=== PATIENT | female | born 1985 | race Caucasian/White ===

== ENCOUNTER → 2021-09-19 | Outpatient (CLI) | payer BC ==
--- NOTE | 2021-09-19 20:45 | CT ---
EXAMINATION TYPE: CT abdomen pelvis wo con DATE OF EXAM: 09/19/2021 HISTORY: Hematuria, bilateral flank pain CT DLP: 2926.30 mGycm. Automated Exposure Control for Dose Reduction was Utilized. TECHNIQUE: CT scan of the abdomen and pelvis is performed without oral or IV contrast. COMPARISON: NONE FINDINGS: Within the limitations of a non-contrast study, the following observations are made. LUNG BASES: No significant abnormality is appreciated. LIVER/GB: The liver is heterogeneously hypodense consistent with diffuse fatty infiltration. Cholecys tectomy clips are seen. No biliary dilatation. PANCREAS: No significant abnormality is seen. SPLEEN: No significant abnormality is seen. ADRENALS: No significant abnormality is seen. KIDNEYS: No renal stones or hydronephrosis is present bilaterally. No intraluminal calculus in the bl adder. BOWEL: Normal-appearing appendix from the cecum. No suspicious small or large bowel dilatation. GENITAL ORGANS: Anteverted uterus. No adnexal masses. A few scattered tiny pelvic phleboliths. LYMPH NODES: No greater than 1cm abdominal or pelvic lymph nodes are appreciated. OSSEOUS STRUCTURES: No significant abnormality is seen. OTHER: No significant additional abnormality is seen. IMPRESSION: No renal stones or hydronephrosis is seen bilaterally. Source of hematuria and bilateral flank pain not identified.
== END | disposition home or self-care (01) ==
LOC: RADCTMAIN 17:59
PROVIDERS: ATTEND Family Medicine
DX: R31.9 Hematuria, unspecified (principal); R10.9 Unspecified abdominal pain
CPT/HCPCS: 74176

== ENCOUNTER → 2024-09-30 | Outpatient (CLI) | payer OTHER ==
[2024-09-30 15:03] VITALS: BP 135/78; PULSE 104; TEMP 97.8; BMI 50.3
--- NOTE | 2024-09-30 15:50 | P.HPBAR ---
Bariatric H&P - History & Physicial H&P Date: 09/30/24 History & Physicial: Visit/CC: initial clinic visit Patient initial contact: Initial weight: Initial weight in pounds: Height: 5 ft 7 in Initial BMI: Last weight: Current weight: 145.603 kg Current weight in pounds: 321.00 Current BMI: 50.3 [place] body weight (based on NIH guidelines): 61.36 kg Excess body weight loss: The patient is a 38 year-old F who presents for Bariatric Assessment. 38-year-old female here for weight loss assessment. Patient with current BMI 50.3. Has suffered with her weight for many years. Previously was looking into weight loss surgery at [facility]. That was before [facility]. Patient suffers from asthma, and chronic reflux. Patient says her heartburn is well-controlled with omeprazole 40 mg once daily. No tobacco use. No DVT history. Denies dysphagia. Surgical history includes laparoscopic cholecystectomy and tonsils. Review of Systems The patient denies any acute changes in vision or hearing, no dysphagia or odynophagia, no chest pain or shortness of breath, no dysuria or hematuria, no headache, no runny nose, no rectal bleeding or melena, no unexplained weight loss Past Medical History Past Medical History: Sleep Apnea/CPAP/BIPAP History of Any Multi-Drug Resistant Organisms: None Reported Past Surgical History: Cholecystectomy, Tonsillectomy Additional Past Surgical History / Comment(s): C section x 3 Past Anesthesia/Blood Transfusion Reactions: No Reported Reaction Past Psychological History: No Psychological Hx Reported Smoking Status: Never smoker Past Alcohol Use History: None Reported Past Drug Use History: None Reported Surgical - Exam Vital Signs Temp Pulse BP 97.8 F 104 H 135/78 09/30/24 15:01 09/30/24 15:01 09/30/24 15:01 Physical exam: General: Well-developed, well-nourished HEENT: Normocephalic, sclerae nonicteric Abdomen: Nontender, nondistended Extremities: No edema Neuro: Alert and oriented Bariatric Assessment & Plan (1) Morbid obesity with BMI of 50.0-59.9, adult Narrative/Plan: 38-year-old female with morbid obesity and associated comorbidities. After discussing surgical options with patient she states she is interested in gastric bypass and not sleeve gastrectomy. She says that this decision is based on some of the people she has met that have had the surgeries previously. Discussed with the patient that given her current BMI and chronic reflux symptoms that may be a good option for her. Arrangements are being made for the patient to be seen next week by Dr. Alexander to discuss further since I do not perform that surgery. Status: Acute Bariatric Checklist Checklist: Plan: Checklist: EGD: 1. Hiatal hernia: 2. H. Pylori: HgbA1c: Vitamin D: Smoking: Primary care physician referral: Psychiatry clearance: Cardiology clearance: Sleep study: Diet journal: VTE risk score: VTE risk level: Rehab needs at discharge:
== END ==
LOC: BARWHC3 14:31
PROVIDERS: ATTEND Surgery
DX: E66.01 Morbid (severe) obesity due to excess calories (principal); Z68.43 Body mass index [BMI] 50.0-59.9, adult
CPT/HCPCS: 99211

== ENCOUNTER 2024-12-22 12:33 | Observation (INO) | payer OTHER ==
--- NOTE | 2024-12-22 14:20 | ED ---
General Adult HPI - General Chief complaint: Dizziness Stated complaint: Dizziness Time Seen by Provider: 12/22/24 14:01 Source: patient, EMS Mode of arrival: EMS Limitations: no limitations - History of Present Illness Initial comments: Dictation was produced using VSporto dictation software. please excuse any grammatical, word or spelling errors. Chief Complaint: 39-year-old female presents to the emergency department with dizziness and brain fog History of Present Illness: Patient 39-year-old female she suffers from a history of migraines. Patient states this morning she woke up feeling fine when around 9 she started to feel little dizzy. States that the night before she had a headache that was improved after taking [id number] headache medications. States that the dizziness did not really get better so she decided to come to the ER. No nausea vomiting. No abdominal pain. No shortness of breath. Denies sensation of the room spinning. Patient [place] any comorbidities. Denies . The ROS documented in this emergency department record has been reviewed and confirmed by me. Those systems with pertinent positive or negative responses have been documented in the HPI. All other systems are other negative and/or noncontributory. - Related Data Home Medications Medication Instructions Recorded Confirmed Venlafaxine HCl [Effexor XR] 150 mg PO DAILY 09/30/24 09/30/24 Allergies Allergy/AdvReac Type Severity Reaction Status Date / Time No Known Allergies Allergy Verified 12/22/24 13:06 Review of Systems ROS Statement: Those systems with pertinent positive or pertinent negative responses have been documented in the HPI. ROS Other: All systems not noted in ROS Statement are negative. Past Medical History Past Medical History: Sleep Apnea/CPAP/BIPAP History of Any Multi-Drug Resistant Organisms: None Reported Past Surgical History: Cholecystectomy, Tonsillectomy Additional Past Surgical History / Comment(s): C section x 3 Past Anesthesia/Blood Transfusion Reactions: No Reported Reaction Past Psychological History: No Psychological Hx Reported Smoking Status: Never smoker Past Alcohol Use History: None Reported Past Drug Use History: None Reported General Exam - General Exam Comments Initial Comments: PHYSICAL EXAM: General Impression: Alert and oriented x3, not in acute distress HEENT: Normocephalic atraumatic, extra-ocular movements intact, pupils equal and reactive to light bilaterally, mucous membranes moist. Cardiovascular: Heart regular rate and rhythm Chest: Able to complete full sentences, no retractions, no tachypnea Abdomen: abdomen soft, non-tender, non-distended, no organomegaly Musculoskeletal: Pulses present and equal in all extremities, no peripheral edema Motor: no focal deficits noted Neurological: CN II-XII grossly intact, no focal motor or sensory deficits noted Skin: Intact with no visualized rashes Psych: Normal affect and mood Limitations: no limitations Course Vital Signs 12/22/24 12/22/24 13:03 14:12 Temperature 97.7 F Pulse Rate 74 73 Respiratory 18 16 Rate Blood Pressure 125/83 119/79 O2 Sat by Pulse 97 98 Oximetry Medical Decision Making - Medical Decision Making Was pt. sent in by a medical professional or institution (, PA, SCAFFOLDING HELPER, urgent ca re, hospital, or long term...) When possible be specific @ -No Did you speak to anyone other than the patient for history (EMS, parent, family, police, friend...)? What history was obtained from this source @ -No Did you review nursing and triage notes (agree or disagree)? Why? @ -I reviewed and agree with nursing and triage notes Were old charts reviewed (outside hosp., previous admission, EMS record, old EKG, old radiological studies, urgent care reports/EKG's, long term records)? Report findings @ -No old charts were reviewed Differential Diagnosis (chest pain, altered mental status, abdominal pain women, abdominal pain men, vaginal bleeding, musculoskeletal, weakness, fever, dyspnea, syncope, headache, dizziness, GI bleed, back pain, seizure, CVA, palpatations, mental health)? @ -Differential Dizziness: Benign paroxysmal positional Vertigo, Meniere's disease, otitis media, acoustic neuroma, vertebrobasilar insufficiency, cerebellar stroke, encephalitis, hypovolemic, arrhythmia, coronary artery syndrome, anemia, this is not meant to be an all-inclusive list EKG interpreted by me (3pts min.). @ -None done X-rays interpreted by me (1pt min.). @ -None done CT interpreted by me (1pt min.). @ -None done U/S interpreted by me (1pt. min.). @ -None done What testing was considered but not performed or refused? (CT, X-rays, U/S, labs)? Why? @ -None What meds were considered but not given or refused? Why? @ -None Was smoking cessation discussed for >3mins.? @ -No Were there social determinants of health that impacted care today? How? (Homelessness, low income, unemployed, alcoholism, drug addiction, transportation, low edu. Level, literacy, decrease access to med. care, custodial, rehab)? @ -No Was there de-escalation of care discussed even if they declined (Discuss DNR or withdrawal of care, Hospice)? DNR status @ -No What co-morbidities impacted this encounter? (DM, HTN, Smoking, COPD, CAD, Cancer, CVA, ARF, Chemo, Hep., AIDS, mental health diagnosis, sleep apnea, morbid obesity)? @ -None Was patient admitted / discharged? Hospital course, mention meds given and route, prescriptions, significant lab abnormalities, going to OR and other pertinent info. @ -39-year-old female presents emergency department dizziness. Denies any black or bloody stools. Vital signs are stable. Patient complains of dizziness lightheadedness. She states she does have some heavy menstrual bleeding. 6.5. Metabolic panel within acceptable limits. Urinalysis negative. Patient clinical presentation consistent with symptomatic anemia. Order for blood transfusion. Patient will be admitted observation overnight. Case discussed with hospitalist with TECHNICAL SERVICES REPRESENTATIVE on consult for vaginal bleeding. Did you discuss the management of the patient with other professionals (professionals i.e. , PA, SCAFFOLDING HELPER, lab, RT, psych nurse, delinquency prevention social worker, electric razor mechanic, teacher, chief administrative officer, caseworker)? Give summary @ -See above Was critical care preformed (if so, how long)? @ -No Undiagnosed new problem with uncertain prognosis? @ -No Drug Therapy requiring intensive monitoring for toxicity (Heparin, Nitro, Insulin, Cardizem)? @ -No Were any procedures done? @ -No Diagnosis/symptom? Acute, or Chronic, or Acute on Chronic? Uncomplicated (without systemic symptoms) or Complicated (systemic symptoms)? @ -Symptomatic anemia Side effects of treatment? @ -No Exacerbation, Progression, or Severe Exacerbation? @ -No Poses a threat to life or bodily function? How? (Chest pain, [place], [place], pneumonia, PE, COPD, DKA, ARF, appy, cholecystitis, CVA, Diverticulitis, Homicidal, Suicidal, threat to staff... and all critical care pts) @ -yes - Lab Data Result diagrams: 12/22/24 14:29 12/22/24 14:29 Lab Results 12/22/24 12/22/24 12/22/24 Range/Units 14:29 14:29 14:29 WBC 4.86 (4.50-10.00) 10*3/uL RBC 2.15 L (4.10-5.20) 10*6/uL Hgb 6.5 L* (12.0-15.0) g/dL Hct 20.4 L (37.2-46.3) % MCV 94.9 (80.0-97.0) fL MCH 30.2 (27.0-32.0) pg MCHC 31.9 L (32.0-37.0) g/dL Plt Count 181 (140-440) 10*3/uL MPV 9.8 (9.5-12.2) fL Immature Gran % (Auto) 0.4 % Neutrophils % 66.1 % Lymphocytes % 24.7 % Monocytes % 4.3 % Eosinophils % 3.9 % Basophils % 0.6 % Immature Gran # 0.02 (0.00-0.04) 10*3/uL Neutrophils # 3.21 (1.80-7.70) 10*3/uL Lymphocytes # 1.20 (0.90-5.00) 10*3/uL Monocytes # 0.21 (0.20-1.00) 10*3/uL Eosinophils # 0.19 (0.04-0.35) 10*3/uL Basophils # 0.03 (0.00-0.10) 10*3/uL Sodium (137-145) mmol/L Potassium (3.5-5.1) mmol/L Chloride (98-107) mmol/L Carbon Dioxide (22-30) mmol/L Anion Gap mmol/L BUN (7-17) mg/dL Creatinine (0.52-1.04) mg/dL Est GFR (CKD-EPI)AfAm (>60 ml/min/1.73 sqM) Est GFR (CKD-EPI)NonAf (>60 ml/min/1.73 sqM) Glucose (74-99) mg/dL Calcium (8.4-10.2) mg/dL Urine Color Yellow Urine Appearance Cloudy H (Clear) Urine pH 5.5 (5.0-8.0) Ur Specific [place] 1.036 H (1.001-1.035) Urine Protein Negative (Negative) Urine Glucose (UA) Negative (Negative) Urine Ketones Negative (Negative) Urine Blood Trace H (Negative) Urine Nitrite Negative (Negative) Urine Bilirubin Negative (Negative) Urine Urobilinogen <2.0 (<2.0) mg/dL Ur Leukocyte Esterase Negative (Negative) Urine RBC 3 (0-5) /hpf Urine WBC 1 (0-5) /hpf Ur Squamous Epith Cells 3 (0-4) /hpf Urine Bacteria Few H (None) /hpf Urine Mucus Many H (None) /hpf Urine HCG, Qual Not Detected (Not Detectd) 12/22/24 Range/Units 14:29 WBC (4.50-10.00) 10*3/uL RBC (4.10-5.20) 10*6/uL Hgb (12.0-15.0) g/dL Hct (37.2-46.3) % MCV (80.0-97.0) fL MCH (27.0-32.0) pg MCHC (32.0-37.0) g/dL Plt Count (140-440) 10*3/uL MPV (9.5-12.2) fL Immature Gran % (Auto) % Neutrophils % % Lymphocytes % % Monocytes % % Eosinophils % % Basophils % % Immature Gran # (0.00-0.04) 10*3/uL Neutrophils # (1.80-7.70) 10*3/uL Lymphocytes # (0.90-5.00) 10*3/uL Monocytes # (0.20-1.00) 10*3/uL Eosinophils # (0.04-0.35) 10*3/uL Basophils # (0.00-0.10) 10*3/uL Sodium 140 (137-145) mmol/L Potassium 3.3 L (3.5-5.1) mmol/L Chloride 113 H (98-107) mmol/L Carbon Dioxide 19 L (22-30) mmol/L Anion Gap 8 mmol/L BUN 8 (7-17) mg/dL Creatinine 0.48 L (0.52-1.04) mg/dL Est GFR (CKD-EPI)AfAm >90 (>60 ml/min/1.73 sqM) Est GFR (CKD-EPI)NonAf >90 (>60 ml/min/1.73 sqM) Glucose 68 L (74-99) mg/dL Calcium 7.0 L (8.4-10.2) mg/dL Urine Color Urine Appearance (Clear) Urine pH (5.0-8.0) Ur Specific [place] (1.001-1.035) Urine Protein (Negative) Urine Glucose (UA) (Negative) Urine Ketones (Negative) Urine Blood (Negative) Urine Nitrite (Negative) Urine Bilirubin (Negative) Urine Urobilinogen (<2.0) mg/dL Ur Leukocyte Esterase (Negative) Urine RBC (0-5) /hpf Urine WBC (0-5) /hpf Ur Squamous Epith Cells (0-4) /hpf Urine Bacteria (None) /hpf Urine Mucus (None) /hpf Urine HCG, Qual (Not Detectd) Disposition Clinical Impression: Symptomatic anemia Disposition: ADMITTED IP TO THIS [facility] Condition: Fair Referrals: None,Stated [REFERRING] - 1-2 days Decision Time: 15:06
[2024-12-22] MEDS: diphenhydrAMINE 50 MG/ML 1 ML VIAL IVP STA (14:41)
[2024-12-22] MEDS: ONDANSETRON 4 MG/2 ML VIAL IVP STA (14:41)
[2024-12-22] MEDS: SODIUM CHLORIDE 0.9% 1,000 ML IV STA (14:41)
[2024-12-22] MEDS: KETOROLAC 15 MG/ML 1 ML VIAL IVP STA (14:41)
[2024-12-22 14:48] LABS: Basophils # (A) 0.03 10*3/uL (0.00-0.10); Basophils % (A) 0.6 %; Eosinophils # (A) 0.19 10*3/uL (0.04-0.35); Eosinophils % (A) 3.9 %; HCT 20.4 % (37.2-46.3); Lymphocytes % (A) 24.7 %; MCH 30.2 pg (27.0-32.0); MCHC 31.9 g/dL (32.0-37.0); MCV 94.9 fL (80.0-97.0); Mean Platelet Volume 9.8 fL (9.5-12.2); Monocytes # (A) 0.21 10*3/uL (0.20-1.00); Monocytes % (A) 4.3 %; Neutrophils # (A) 3.21 10*3/uL (1.80-7.70); Neutrophils % (A) 66.1 %; Platelet Count 181 10*3/uL (140-440); RBC 2.15 10*6/uL (4.10-5.20); RDW 12.9 % (11.5-14.5); WBC 4.86 10*3/uL (4.50-10.00)
[2024-12-22 14:51] LABS: HGB 6.5 g/dL (12.0-15.0)
[2024-12-22 14:53] LABS: African American GFR (CKD) >90 (>60 ml/min/1.73 sqM); Anion Gap 8 mmol/L; Blood Urea Nitrogen 8 mg/dL (7-17); Carbon Dioxide 19 mmol/L (22-30); Chloride 113 mmol/L (98-107); Glucose 68 mg/dL (74-99); Non-African American GFR(CKD) >90 (>60 ml/min/1.73 sqM); Sodium 140 mmol/L (137-145)
[2024-12-22 14:56] LABS: Appearance,Urine Cloudy (Clear); Bacteria,Urine Few /hpf; Bilirubin,Urine Negative (Negative); Blood,Urine Trace (Negative); Color,Urine Yellow; Glucose,Urine (UA) Negative (Negative); Ketones,Urine Negative (Negative); Leukocyte Esterase,Urine Negative (Negative); Mucus,Urine Many /hpf; Nitrite,Urine Negative (Negative); PH, Urine 5.5 (5.0-8.0); Protein,Urine Negative (Negative); RBC,Urine 3 /hpf (0-5); Specific Gravity,Urine 1.036 (1.001-1.035); Squamous Epithelial Cell,Urine 3 /hpf (0-4); Urobilinogen,Urine <2.0 mg/dL (<2.0); WBC,Urine 1 /hpf (0-5)
[2024-12-22 15:00] LABS: Potassium 3.3 mmol/L (3.5-5.1)
[2024-12-22] MEDS ORDERED: NALOXONE 0.4 MG/ML 1 ML VIAL IV PRN (15:04)
[2024-12-22] MEDS: SODIUM CHLORIDE 0.9% 1,000 ML IV SCH (16:16)
[2024-12-22] MEDS ORDERED: ALBUTEROL NEBULIZED 2.5 MG/3 ML INHALATION PRN (17:28)
[2024-12-22] MEDS: SYMBICORT 160-4.5 MCG INHALER INHALATION SCH (19:50)
[2024-12-22] MEDS: VENLAFAXINE HCL ER 150 MG CAP PO SCH (20:26)
[2024-12-22] MEDS: oxyBUTYnin chloride 5 MG TAB PO SCH (20:26)
[2024-12-22 21:53] LABS: HCT 40.7 % (37.2-46.3); MCH 29.6 pg (27.0-32.0); MCHC 32.4 g/dL (32.0-37.0); MCV 91.3 fL (80.0-97.0); Mean Platelet Volume 9.1 fL (9.5-12.2); Platelet Count 313 10*3/uL (140-440); RBC 4.46 10*6/uL (4.10-5.20); WBC 7.16 10*3/uL (4.50-10.00)
[2024-12-22 22:01] LABS: HGB 13.2 g/dL (12.0-15.0)
--- NOTE | 2024-12-23 04:33 | HP ---
HISTORY AND PHYSICAL CHIEF COMPLAINT: Dizziness and anemia. HISTORY OF PRESENT ILLNESS: This is a 39-year-old woman with past medical history of sleep apnea, history of cholecystectomy, admitted with dizziness. The patient works as a house cleaning. The patient felt significant dizziness as well as headache and the patient came to [facility]. Hemoglobin was found to be 6.5. The patient is being transfused. There is no history of fever, rigors, chills. No history of bleeding or at this time. PAST MEDICAL HISTORY: Sleep apnea, history of cholecystectomy, also reviewed. MEDICATIONS: Effexor XR. Rest of medications noted. ALLERGIES: None. FAMILY HISTORY: No history of heart disease or stroke in the family. SOCIAL HISTORY: No history of smoking or alcohol intake. REVIEW OF SYSTEMS: Fourteen-point review of systems is negative except as mentioned above. PHYSICAL EXAMINATION: VITAL SIGNS: Pulse is 70, blood pressure 134/70, respirations 16. HEENT: Conjunctivae pale. CARDIOVASCULAR: n. ABDOMEN: Soft, nontender. LEGS: n NERVOUS SYSTEM: No focal deficit. SKIN: No rashes. LABORATORY DATA: Hemoglobin 6.5, MCV 94.9, potassium 3.3, CO2 is 19, glucose is 68, calcium is 7. ASSESSMENT: 1. Syncope , possible anemia. 2. Hypokalemia. 3. Sleep apnea. 4. Cholecystectomy. RECOMMENDATION: This 39-year-old woman presented with multiple complex medical issues. We will monitor the patient closely. Continue with the current medications, symptomatic treatment at this time. Transfusion. I would also recommend repeat hemoglobin. If hemoglobin is persistently low, I would also recommend stool OB and workup for the blood loss also. Prognosis extremely guarded because of multiple complex medical issues. Further recommendations to follow. See orders for details. MMODL / IJN: [id number] / MTDD
[2024-12-23 05:59] LABS: Glucose,Whole Blood 87 mg/dL (70-110)
[2024-12-23 07:19] LABS: Basophils # (A) 0.06 10*3/uL (0.00-0.10); Basophils % (A) 0.9 %; Eosinophils # (A) 0.39 10*3/uL (0.04-0.35); Eosinophils % (A) 5.8 %; HCT 43.7 % (37.2-46.3); HGB 13.9 g/dL (12.0-15.0); Lymphocytes % (A) 31.2 %; MCH 29.4 pg (27.0-32.0); MCHC 31.8 g/dL (32.0-37.0); MCV 92.6 fL (80.0-97.0); Mean Platelet Volume 9.3 fL (9.5-12.2); Monocytes % (A) 4.5 %; Neutrophils # (A) 3.87 10*3/uL (1.80-7.70); Neutrophils % (A) 57.3 %; Platelet Count 332 10*3/uL (140-440); RBC 4.72 10*6/uL (4.10-5.20); WBC 6.74 10*3/uL (4.50-10.00)
[2024-12-23 07:41] LABS: African American GFR (CKD) >90 (>60 ml/min/1.73 sqM); Anion Gap 7 mmol/L; Blood Urea Nitrogen 13 mg/dL (7-17); Calcium 9.3 mg/dL (8.4-10.2); Carbon Dioxide 27 mmol/L (22-30); Chloride 106 mmol/L (98-107); Glucose 88 mg/dL (74-99); Non-African American GFR(CKD) 88 (>60 ml/min/1.73 sqM); Potassium 4.5 mmol/L (3.5-5.1); Sodium 140 mmol/L (137-145)
--- NOTE | 2024-12-23 08:32 | US ---
EXAMINATION TYPE: US transvaginal DATE OF EXAM: 12/23/2024 COMPARISON: NONE CLINICAL INDICATION: Female, 39 years old with history of abnormal uterine bleeding; Bleeding TECHNIQUE: Transvaginal (TV). FINDINGS: EXAM MEASUREMENTS: Uterus: 9.1 x 5.2 x 4.7 cm Endometrial Stripe: .7 cm 1. Uterus: Anteverted. A few focal fibroids seen, largest 2.7 x 2.4 x 2.4 cm along the anterior ut erine body. There appears to be a scar anterior lower uterine segment. 2. Endometrium: wnl 3. Right Ovary: Obscured by overlying bowel gas 4. Left Ovary: Obscured by overlying bowel gas 5. Bilateral Adnexa: wnl 6. Posterior cul-de-sac: wnl IMPRESSION: 1. scar suggested. Regular 2 A few focal fibroids, largest anterior body measuring 2.7 cm it appears predominantly intra mural. 3. Endometrial stripe thickness of 7 mm within normal limits. 4. Unable to visualize either ovary. [facility], , 12/23/2024 8:30 AM
[2024-12-23] MEDS: PANTOPRAZOLE 40 MG TABLET PO SCH (09:21)
[2024-12-23 09:30] VITALS: BP 115/84; PULSE 79; RESP 17; TEMP 98
== END 2024-12-23 16:10 | disposition home or self-care (01) ==
LOC: EC 12:33 → 1SOBS 15:05
PROVIDERS: ADMIT Hospitalist; ATTEND Hospitalist
DX: R55 Syncope and collapse (principal); D64.9 Anemia, unspecified; E87.6 Hypokalemia; G47.30 Sleep apnea, unspecified; G43.909 Migraine, unspecified, not intractable, without status migrainosus; Z90.49 Acquired absence of other specified parts of digestive tract; Z79.899 Other long term (current) drug therapy
CPT/HCPCS: 36430; 96361; 96374; 96375; 99284; 36415; 94640 ×2; 86900; 86901; 80048 ×2; 85025 ×2; 85027; 86850; 86920; 81001; 81025; 76830; G0378 ×2; P9016; J1200; J2405; J1885